=== PATIENT | female | born 1990 | race Caucasian/White ===

== ENCOUNTER 2018-08-08 16:33 | Outpatient (CLI) | payer OTHER, MEDICAID ==
[2018-08-08 18:33] LABS: WHITE BLOOD COUNT 9.3 10^3/ul (4.8-10.8)
[2018-08-08 18:33] LABS: ABNORMAL IP MESSAGE 1; HEMATOCRIT 35.8 % (37.0-47.0); MEAN CORPUSCULAR HEMOGLOBIN 28.7 pg (29.0-33.0); MEAN CORPUSCULAR HGB CONC 33.5 g/dl (32.0-37.0); MEAN CORPUSCULAR VOLUME 85.6 fl (82.0-101.0); PLATELET COUNT 87 10^3/UL (140-415); RED BLOOD COUNT 4.18 10^6/ul (4.20-5.40); RED CELL DISTRIBUTION WIDTH 14.3 % (11.5-14.5)
[2018-08-08 18:35] LABS: POSITIVE DIFF @See below
[2018-08-08 18:37] LABS: ADD MAN DIFF? YES
[2018-08-08 19:46] LABS: GIANT THROMBO% (M) 1 % (0-0); LYMPHOCYTES % (M) 11 % (15-51); MONOCYTE #M 0.6 10^3/ul (0.3-0.9); MONOCYTES % (M) 7 % (0-11); PLATELET ESTIMATE DECREASED; SEGMENTED NEUTROPHILS (M) % 82 % (39-77); SMUDGE%M 7 % (0-0)
== END 2018-08-08 21:40 | disposition home or self-care (01) ==
LOC: OBT 16:33 → L-D 16:35
DX: O9A.213 Injury, poisoning and certain other consequences of external causes complicating pregnancy, third trimester (principal); Z3A.39 39 weeks gestation of pregnancy
CPT/HCPCS: 76815; 76818; 85025; 85460